=== PATIENT | female | born 1965 ===

== ENCOUNTER 2017-02-06 03:35 | Emergency (ER) | payer BC ==
[2017-02-06] MEDS ORDERED: Sodium Chloride 0.9% 1,000 ML IV STA (04:06)
--- NOTE | 2017-02-06 04:10 | ED PDOC ---
HPI: Abdomen Time Seen by Provider: 02/06/17 03:49 Chief Complaint (Nursing): Back Pain Chief Complaint (Provider): left flank pain History Per: Patient History/Exam Limitations: no limitations Onset/Duration Of Symptoms: Hrs (6) Current Symptoms Are (Timing): Still Present Location Of Pain/Discomfort: LLQ, Other (left flank) Quality Of Discomfort: Sharp, "Pain" Associated Symptoms: Back Pain, Urinary Symptoms. denies: Fever, Chills, Nausea , Vomiting, Chest Pain Additional History Per: Patient Additional Complaint(s): 51 y/o female presents with left flank pain x 6 days. Associated dysuria x 2 days. Denies fever, nausea/vomiting, chest pain, shortness of breath, palpitations, changes in bowel movements, hematuria, vaginal bleeding/discharge. Past Medical History Reviewed: Historical Data, Nursing Documentation, Vital Signs Vital Signs: Last Vital Signs Temp 97.1 F L 02/06/17 03:47 Pulse 65 02/06/17 03:47 Resp 18 02/06/17 03:47 BP 128/74 02/06/17 03:47 Pulse Ox 100 02/06/17 04:10 - Medical History PMH: Anxiety, Depression - Surgical History Surgical History: No Surg Hx - Family History Family History: States: Unknown Family Hx - Immunization History Hx Tetanus Toxoid Vaccination: No Hx Influenza Vaccination: No Hx Pneumococcal Vaccination: No - Home Medications Home Medications: Ambulatory Orders Medication Instructions Recorded Alprazolam [Xanax] 1 mg PO DAILY 11/02/14 - Allergies Allergies/Adverse Reactions: Allergies Allergy/AdvReac Type Severity Reaction Status Date / Time ibuprofen Allergy RASH Verified 02/06/17 03:46 Review of Systems ROS Statement: Except As Marked, All Systems Reviewed And Found Negative Gastrointestinal: Positive for: Abdominal Pain Physical Exam - Reviewed Nursing Documentation Reviewed: Yes Vital Signs Reviewed: Yes - Physical Exam Appears: Positive for: Well, Non-toxic, Uncomfortable Head Exam: Positive for: ATRAUMATIC, NORMAL INSPECTION, NORMOCEPHALIC Skin: Positive for: Normal Color Eye Exam: Positive for: Normal appearance ENT: Positive for: Normal ENT Inspection Cardiovascular/Chest: Positive for: Regular Rate, Rhythm Respiratory: Positive for: Normal Breath Sounds Gastrointestinal/Abdominal: Positive for: Bowel Sounds, Soft, Tenderness (left flank) Back: Positive for: L CVA Tenderness Extremity: Positive for: Normal ROM Neurologic/Psych: Positive for: Alert, Oriented - Laboratory Results Result Diagrams: 02/06/17 04:35 - ECG O2 Sat by Pulse Oximetry: 100 - Progress ED Course And Treament: labs, urine, IV fluids, IV morphine, CT renal protocol Disposition - Clinical Impression Clinical Impression: UTI (urinary tract infection), Left flank pain - Disposition Referrals: Jose Luis Bustillos MD [Primary Care Provider] - Disposition Time: 06:00 Condition: STABLE Patient Signed Over To: Stephanie Lomas Handoff Comments: pending labs, CT
[2017-02-06 04:53] LABS: ALBUMIN 4.2 g/dL (3.5-5.0)
[2017-02-06 04:55] LABS: SQUAMOUS EPITHIAL 1 /hpf (0-5); URINE BACTERIA RARE (<OCC); URINE BILIRUBIN NEGATIVE (NEGATIVE); URINE BLOOD SMALL (NEGATIVE); URINE CLARITY SLIGHTY-CLOUDY (Clear); URINE COLOR YELLOW (YELLOW); URINE GLUCOSE (UA) NEG (Normal); URINE LEUKOCYTE ESTERASE MOD Leu/uL (Negative); URINE NITRATE NEGATIVE (NEGATIVE); URINE PROTEIN 100 mg/dL (NEGATIVE); URINE UROBILINOGEN 0.2-1.0 mg/dL (0.2-1.0)
[2017-02-06 04:56] LABS: ALB/GLOB RATIO 1.2 (1.0-2.1); ALT/SGPT 15 U/L (9-52); AST/SGOT 51 U/L (14-36); BLOOD UREA NITROGEN 15 mg/dl (7-17); GFR AFRICAN-AMERICAN > 60; GFR NON-AFRICAN AMERICAN > 60
[2017-02-06 04:57] LABS: CALCIUM 8.8 mg/dL (8.4-10.2)
[2017-02-06 05:46] LABS: BASO % 0.5 % (0.0-2.0); EOS # 0.1 K/uL (0.0-0.7); EOS % 1.1 % (0.0-4.0); HEMOGLOBIN 12.1 g/dL (12.0-16.0); LYMPH # 1.3 K/uL (1.0-4.3); LYMPH % 13.8 % (20.0-40.0); MEAN CELL VOLUME 88.6 fl (81.0-99.0); MEAN CORPUSCULAR HEMOGLOBIN 29.6 pg (27.0-31.0); MEAN CORPUSCULAR HGB CONC 33.4 g/dL (33.0-37.0); MONO # 0.5 K/uL (0.0-0.8); MONO % 5.6 % (0.0-10.0); NEUT # 7.3 K/uL (1.8-7.0); RBC 4.08 Mil/uL (3.80-5.20); RED CELL DISTRIBUTION WIDTH 13.8 % (11.5-14.5); WHITE BLOOD COUNT 9.2 K/uL (4.8-10.8)
[2017-02-06 05:57] LABS: ALB/GLOB RATIO 1.3 (1.0-2.1); ALBUMIN 3.5 g/dL (3.5-5.0); ALT/SGPT 33 U/L (9-52); AST/SGOT 17 U/L (14-36); BLOOD UREA NITROGEN 14 mg/dl (7-17); CALCIUM 8.3 mg/dL (8.4-10.2); GFR AFRICAN-AMERICAN > 60; GFR NON-AFRICAN AMERICAN 59
--- NOTE | 2017-02-06 06:04 | ED PDOC ---
- Laboratory Results Result Diagrams: 02/06/17 05:18 02/06/17 05:18 - ECG Pulse Ox Interpretation: Normal - CT Scan/US CT abd/pelvis Other Rad Studies (CT/US): Radiology Report Reviewed (No evidence of nephrolithiasis. Left ureter is minimally dilated with some localized infiltration changes in the periureteric fat. In addition, there is wall thickening of the urinary bladder which may in part be due to incomplete distention however cystitis with at ascending urinary tract infection must be considered.) <Alina Cameron - Last Filed: 02/06/17 09:46> - Laboratory Results Result Diagrams: 02/06/17 05:18 02/06/17 05:18 - ECG O2 Sat by Pulse Oximetry: 100 (RA) Pulse Ox Interpretation: Normal <Stephanie Lomas - Last Filed: 02/07/17 10:28> Medical Decision Making <Alina Cameron - Last Filed: 02/06/17 09:46> <Stephanie Lomas - Last Filed: 02/07/17 10:28> Medical Decision Making: Patient signed out to provider at 0700 from Rakesh DUNN pending labs and CT. Patient will be signed out to Dr. Cameron at [address] Scribe Attestation Documented by Danna Jaeger acting as a scribe for Stephanie Lomas MD. Provider Attestation All medical record entries made by the Scribe were at my direction and personally dictated by me. I have reviewed the chart and agree that the record accurately reflects my personal performance of the history, physical exam, medical decision making, and the department course for this patient. I have also personally directed, reviewed, and agree with the discharge instructions and disposition. (Stephnaie Lomas) Disposition - POA Present On Arrival: None - Disposition Disposition: Routine/Home Disposition Time: 09:43 <Alina Cameron - Last Filed: 02/06/17 09:46> - POA Present On Arrival: None - Disposition Disposition: Transfer of Care Disposition Time: 07:00 Patient Signed Over To: Alina Cameron <Stephanie Lomas Y - Last Filed: 02/07/17 10:28> - Clinical Impression Clinical Impression: Pyelonephritis - Disposition Referrals: Jose Luis Bustillos MD [Primary Care Provider] - Condition: STABLE Prescriptions: Nitrofurantoin Macrocrystals [Macrobid] 100 mg PO BID #14 cap Phenazopyridine [Pyridium] 200 mg PO TID PRN #6 tab PRN Reason: Bladder Spasm Instructions: Acute Pyelonephritis (ED) Print Language: STATELESS
[2017-02-06] MEDS ORDERED: Sodium Chloride 0.9% 0 ML IV ONE (07:07)
[2017-02-06] MEDS ORDERED: Iohexol 300 100 ML IJ ONE (07:07)
[2017-02-06] MEDS ORDERED: Fluconazole 150 MG TAB PO STA (07:35)
[2017-02-06] MEDS ORDERED: cefTRIAXone (Rocephin) 1 gm Inj ONE (07:51)
[2017-02-06 08:24] VITALS: PULSE 78; RESP 20
--- NOTE | 2017-02-06 09:33 | CT ---
PROCEDURE: CT abdomen pelvis dated 02/06/2017 HISTORY: left flank pain COMPARISON: No prior TECHNIQUE: Contiguous axial images of the abdomen and pelvis performed without oral or intravenous contrast material. Coronal and Sagittal reformats generated. Radiation dose: Total exam DLP = 1057.28 mGy-cm. This CT exam was performed using one or more of the following dose reduction techniques: Automated exposure control, adjustment of the mA and/or kV according to patient size, and/or use of iterative reconstruction technique. FINDINGS: LOWER THORAX: Mild passive atelectasis both posterior lower lung nava. . No infiltrate effusion or basilar pneumothorax. . Heart size within range of normal. No pericardial effusion. Small hiatal hernia LIVER: Liver is upper limits of normal in size measuring approximately 17 cm in CC dimension. No obvious hepatic mass collection or calcification. GALLBLADDER AND BILE DUCTS: Gallbladder is physiologically distended. No evidence of intraluminal gallbladder calculi. PANCREAS: Unremarkable. No mass. No ductal dilatation. SPLEEN: Spleen is upper limits of normal measuring nearly 12.2 cm in greatest AP dimension. No splenic mass collection or calcification. ADRENALS: No adrenal lesions. KIDNEYS AND URETERS: Kidneys exhibit relatively symmetric size. No evidence of nephrolithiasis however there is minimal dilatation of the left ureter with some vague surrounding the periureteric infiltration changes. Rule out recently passed calculus. Possibility of ascending UTI to be excluded BLADDER: Urinary bladder is incompletely distended which may in part account for bladder wall thickening. The possibility of a cystitis should also be excluded. REPRODUCTIVE: Uterus and adnexal structures grossly unremarkable. APPENDIX: Unremarkable. BOWEL: Evaluation of the bowel is limited due to the lack of oral contrast material. Stomach is incompletely distended which presumably accounts for slight thick-walled appearance. Visualized loops of small bowel exhibit normal contour and caliber. No evidence of acute mechanical small bowel obstruction. There is a moderate amount of stool seen within the cecum and ascending colon suggesting mild fecal retention. The transverse colon is slightly distended with air however the remaining colon is relatively collapsed. No definitive mural wall thickening. PERITONEUM: Unremarkable. No fluid collection. No free air. Small fat containing umbilical hernia. LYMPH NODES: Unremarkable. No enlarged lymph nodes. VASCULATURE: Unremarkable. No aortic aneurysm. BONES: No fracture or destructive lesion. OTHER FINDINGS: None. IMPRESSION: No evidence of nephrolithiasis. Left ureter is minimally dilated with some localized infiltration changes in the periureteric fat. In addition, there is wall thickening of the urinary bladder which may in part be due to incomplete distention however cystitis with at ascending urinary tract infection must be considered. Findings the Dr. Cameron at approximately 9:30 a.m. with written down and read back verification. See above discussion for additional details and findings.
[2017-02-06 09:56] VITALS: BP 128/78; TEMP 97.6
[2017-02-07 10:28] VITALS: O2SAT 100
== END 2017-02-06 09:55 | disposition home or self-care (01) ==
LOC: H.ER 03:35
DX: N12 Tubulo-interstitial nephritis, not specified as acute or chronic (principal); N39.0 Urinary tract infection, site not specified; F41.9 Anxiety disorder, unspecified
CPT/HCPCS: 74176; 80053; 81003; 85025; 87086; 87181; 96374; 96375; 96376; 99283; J0696; J2270; J7040